=== PATIENT | female | born 1965 | race Caucasian/White ===

== ENCOUNTER 2018-01-02 13:33 | Emergency (ER) | payer MEDICAID ==
[~2018-01-02] VITALS: Ht 152.4 cm; Wt 59.0 kg
[~2018-01-02 13:33] MED LIST: ANT25 PO
[2018-01-02 13:40] VITALS: Ht 152.4 cm; Wt 59.0 kg
[2018-01-02 15:09] VITALS: BP 145/73
== END 2018-01-02 15:09 | disposition home or self-care (01) ==
LOC: ED 13:33
DX: G44.209 Tension-type headache, unspecified, not intractable (principal); I10 Essential (primary) hypertension

== ENCOUNTER 2018-01-27 15:29 | Emergency (ER) | payer MEDICAID ==
[~2018-01-27] VITALS: Ht 152.4 cm; Wt 59.4 kg
[2018-01-27 15:47] VITALS: Ht 152.4 cm; Wt 59.4 kg
[2018-01-27 18:15] LABS: BASOPHIL % 0.3 % (0-2); PLATELET COUNT 276 x10^3mcL (130-400)
[2018-01-27 18:22] LABS: RED CELL DISTRIBUTION WIDTH 19.3 % (11.5-14.5)
[2018-01-27 18:23] LABS: CALCIUM 8.7 mg/dL (8.5-10.1); CARBON DIOXIDE 27.1 mmol/L (21-32); CHLORIDE SERUM 104 mmol/L (98-107); CREATININE SERUM 0.6 mg/dL (0.6-1.0); GFR1 > 60 mL/min; GLUCOSE SERUM 140 mg/dL (74-106); POTASSIUM SERUM 3.9 mmol/L (3.5-5.1); SODIUM SERUM 140 mmol/L (136-145)
[2018-01-27 18:28] LABS: ALBUMIN 3.8 g/dL (3.4-5.0); ALKALINE PHOSPHATASE 95 U/L (46-116); ALT/SGPT 30 U/L (14-59); AST/SGOT 20 U/L (15-37); BILIRUBIN TOTAL 0.21 mg/dL (0.20-1.00); LIPASE 134 IU/L (73-393)
[2018-01-27 19:31] VITALS: BP 125/76
== END 2018-01-27 19:31 | disposition home or self-care (01) ==
LOC: ED 15:29
PROVIDERS: Emergency Medicine
DX: R10.13 Epigastric pain (principal); R11.0 Nausea
CPT/HCPCS: 36415; J1885; Q0162

== ENCOUNTER 2018-05-09 21:07 | Emergency (ER) | payer MEDICAID ==
[~2018-05-09] VITALS: Ht 152.4 cm; Wt 60.8 kg
[2018-05-09 23:31] VITALS: BP 132/74
== END 2018-05-09 23:31 | disposition home or self-care (01) ==
LOC: ED 21:07
DX: S66.911A Strain of unspecified muscle, fascia and tendon at wrist and hand level, right hand, initial encounter (principal); Z98.890 Other specified postprocedural states; X58.XXXA Exposure to other specified factors, initial encounter; Y93.89 Activity, other specified; Y92.89 Other specified places as the place of occurrence of the external cause; Y99.8 Other external cause status
CPT/HCPCS: J1885; Q0092

== ENCOUNTER 2018-06-23 06:03 | Emergency (ER) | payer MEDICAID ==
[~2018-06-23] VITALS: Ht 152.4 cm; Wt 61.2 kg
[2018-06-23 06:07] VITALS: Ht 152.4 cm; Wt 61.2 kg
[2018-06-23 06:53] LABS: CALCIUM 8.9 mg/dL (8.5-10.1); CARBON DIOXIDE 28.2 mmol/L (21-32); CHLORIDE SERUM 104 mmol/L (98-107); CREATININE SERUM 0.6 mg/dL (0.6-1.0); GFR1 > 60 mL/min; GLUCOSE SERUM 96 mg/dL (74-106); POTASSIUM SERUM 4.1 mmol/L (3.5-5.1); SODIUM SERUM 139 mmol/L (136-145)
[2018-06-23 06:54] LABS: BASOPHIL % 0.5 % (0-2); PLATELET COUNT 270 x10^3mcL (130-400)
[2018-06-23 06:55] LABS: RED CELL DISTRIBUTION WIDTH 15.1 % (11.5-14.5)
[2018-06-23 06:59] LABS: ALBUMIN 3.6 g/dL (3.4-5.0); ALKALINE PHOSPHATASE 67 U/L (46-116); ALT/SGPT 22 U/L (14-59); AST/SGOT 13 U/L (15-37); BILIRUBIN TOTAL 0.1 mg/dL (0.20-1.00); LIPASE 157 IU/L (73-393); TOTAL PROTEIN, SERUM 7.4 g/dL (6.4-8.2)
[2018-06-23 07:40] LABS: UA SPECIFIC GRAVITY 1.015 (1.005-1.035); microscopic required? YES; urine erythrocyte TRACE (NEGATIVE)
[2018-06-23 08:55] VITALS: BP 110/68
== END 2018-06-23 08:56 | disposition home or self-care (01) ==
LOC: ED 06:03
PROVIDERS: Emergency Medicine
DX: K29.70 Gastritis, unspecified, without bleeding (principal); K21.9 Gastro-esophageal reflux disease without esophagitis; Z98.890 Other specified postprocedural states
CPT/HCPCS: 36415; J1885; Q0092

== ENCOUNTER 2018-07-25 12:29 | Emergency (ER) | payer MEDICAID ==
[~2018-07-25] VITALS: Ht 152.4 cm; Wt 62.6 kg
[2018-07-25 12:55] VITALS: BP 130/74; Ht 152.4 cm; Wt 62.6 kg
== END 2018-07-25 16:00 | disposition left against medical advice (07) ==
LOC: ED 12:29
DX: Z53.21 Procedure and treatment not carried out due to patient leaving prior to being seen by health care provider (principal)